=== PATIENT | male | born 1940 | race American Indian/Alaskan Native ===

== ENCOUNTER 2018-08-09 09:18 | Outpatient (CLI) | payer MEDICARE ==
[2018-08-09 11:15] LABS: Hematocrit 49.6 % (35.5-45.6); Hemoglobin 16.5 gm/dl (11.8-15.2); Mean Corpuscular HGB Conc 33 % (32-34); Mean Corpuscular Volume 96 fl (84-94); Platelet Count 209 K/mm3 (140-440); Red Blood Count 5.19 M/mm3 (3.65-5.03); Red Cell Distribution Width 14.2 % (13.2-15.2)
[2018-08-09 11:31] LABS: Albumin 4.1 g/dL (3.9-5); Calcium 9.4 mg/dL (8.4-10.2); Chol/HDL Ratio 3.41 %
== END 2018-08-09 09:19 | disposition home or self-care (01) ==
LOC: LAB 09:18
PROVIDERS: ATTEND Internal Medicine
DX: Z00.01 Encounter for general adult medical examination with abnormal findings (principal); I10 Essential (primary) hypertension; E55.9 Vitamin D deficiency, unspecified; D50.0 Iron deficiency anemia secondary to blood loss (chronic); R73.9 Hyperglycemia, unspecified; Z87.891 Personal history of nicotine dependence; R79.89 Other specified abnormal findings of blood chemistry
CPT/HCPCS: 36415; 80053; 80061; 82306; 82607; 83036; 84153; 84443; 85027

== ENCOUNTER 2019-02-22 09:00 | Outpatient (CLI) | payer MEDICARE ==
[2019-02-22 10:07] LABS: Chol/HDL Ratio 3.28 %
== END 2019-02-22 09:01 | disposition home or self-care (01) ==
LOC: LAB 09:00
PROVIDERS: ATTEND Internal Medicine
DX: E78.5 Hyperlipidemia, unspecified (principal); R73.03 Prediabetes; I10 Essential (primary) hypertension; Z87.891 Personal history of nicotine dependence
CPT/HCPCS: 36415; 80061; 83036

== ENCOUNTER 2020-10-08 14:32 | Emergency (ER) | payer MEDICARE ==
[2020-10-08] MEDS ORDERED: SODIUM CHLORIDE 0.9% 1000 ML 1,000 ML IV ONE ×2 (16:05→17:48)
--- NOTE | 2020-10-08 16:15 | Emergency Department Report ---
HPI - General Chief Complaint: Nausea/Vomiting/Diarrhea Time Seen by Provider: 10/08/20 15:55 - HPI HPI: 80-year-old male with history of hypertension and prior GI bleed in 2018 presents complaining of approximately 3 days of diarrhea which has been dark and tarry. The patient states that he first began having diarrhea on Wednesday. Since then he has had 3-4 loose bowel movements which he describes as dark in color, almost black. He also has developed severe generalized weakness and this is why he decided to call 911 today. Other than the diarrhea, dark stool, and weakness, he denies experiencing any fever, headache, vision change, chest pain, shortness of breath, cough, abdominal pain, nausea/vomiting, focal weakness, sensory changes, dysuria, hematuria, or any other complaints. He denies any recent use of NSAIDs or alcohol. ED Past Medical Hx - Past Medical History Previous Medical History?: Yes Hx Hypertension: Yes Additional medical history: History of GI bleed in 2018 - Surgical History Additional Surgical History: RADICAL PROSTATE SURGERY - Social History Smoking Status: Former Smoker Substance Use Type: Alcohol (occassional) - Medications Home Medications: Home Medications Medication Instructions Recorded Confirmed Last Taken Type Metoprolol Tartrate 25 mg PO BID 10/08/20 10/08/20 10/08/20 History ED Review of Systems ROS: Stated complaint: HYPOTENSION/WEAKNESS Other details as noted in HPI Constitutional: weakness. denies: chills Eyes: denies: eye pain, vision change ENT: denies: throat pain, congestion Respiratory: denies: cough, shortness of breath Cardiovascular: denies: chest pain, edema, syncope Gastrointestinal: diarrhea, melena. denies: abdominal pain, nausea, vomiting Genitourinary: denies: dysuria, frequency, hematuria Musculoskeletal: denies: back pain, myalgia Skin: denies: rash Neurological: denies: headache, weakness, numbness Physical Exam - Physical Exam Vital Signs: Vital Signs 10/08/20 10/08/20 15:16 15:19 Temperature 98.4 F 98.4 F Pulse Rate 95 H 99 H Respiratory 17 17 Rate Blood Pressure 98/41 Blood Pressure 98/41 [Left] O2 Sat by Pulse 98 98 Oximetry Vital Signs - 24 hr 10/08/20 10/08/20 10/08/20 15:12 15:16 15:19 Temperature 98.4 F 98.4 F Pulse Rate 99 H 95 H 99 H Respiratory 19 17 17 Rate Blood Pressure 98/41 Blood Pressure 98/41 [Left] O2 Sat by Pulse 98 98 Oximetry 10/08/20 10/08/20 10/08/20 15:31 16:01 16:31 Temperature Pulse Rate 100 H 114 H 103 H Respiratory 15 12 17 Rate Blood Pressure 99/54 83/58 109/80 Blood Pressure [Left] O2 Sat by Pulse 100 Oximetry 10/08/20 10/08/20 10/08/20 17:01 17:45 18:00 Temperature Pulse Rate 97 H 97 H 94 H Respiratory 14 15 13 Rate Blood Pressure 108/60 108/60 90/52 Blood Pressure [Left] O2 Sat by Pulse Oximetry 10/08/20 10/08/20 10/08/20 18:04 18:15 18:21 Temperature 98.4 F Pulse Rate 92 H 93 H 94 H Respiratory 16 18 Rate Blood Pressure 82/53 86/49 Blood Pressure 87/56 [Left] O2 Sat by Pulse 100 Oximetry 10/08/20 10/08/20 18:27 18:31 Temperature 99.0 F Pulse Rate 95 H 94 H Respiratory 19 16 Rate Blood Pressure 91/59 93/51 Blood Pressure [Left] O2 Sat by Pulse 97 Oximetry Physical Exam: GENERAL: Well developed and well nourished. No acute distress HEENT: Normocephalic. No obvious signs of trauma. Very dry mucous membranes. EYES: Extraocular movements are intact. NECK: Supple. Trachea is midline. LUNGS: Nonlabored breathing. Equal chest rise bilaterally. Clear to auscultation bilaterally. HEART/CARDIOVASCULAR: Tachycardic but with regular rhythm. No murmurs or rubs. VASCULAR: 2+ peripheral pulses ABDOMEN: Abdomen is soft and nondistended. There is no significant tenderness, guarding or rebound. RECTAL: Normal rectal tone. Melanotic stool is present in the rectal vault which is hemoccult positive. SKIN: Skin is warm and dry NEURO: Patient is awake, alert, and oriented. addiction treatment counselor II-XII grossly intact. No f ocal deficits. Normal motor and sensory exam throughout. Normal speech. MUSCULOSKELETAL: No obvious deformities. No significant tenderness. Normal ROM throughout. ED Course Vital Signs 10/08/20 10/08/20 15:16 15:19 Temperature 98.4 F 98.4 F Pulse Rate 95 H 99 H Respiratory 17 17 Rate Blood Pressure 98/41 Blood Pressure 98/41 [Left] O2 Sat by Pulse 98 98 Oximetry ED Medical Decision Making - Lab Data Result diagrams: 10/08/20 16:22 10/08/20 16:22 Laboratory Results - last 24 hr 10/08/20 10/08/20 10/08/20 16:22 16:22 16:22 WBC 11.4 H RBC 2.55 L Hgb 8.5 L Hct 25.2 L MCV 99 H MCH 33 H MCHC 34 RDW 15.0 Plt Count 148 Lymph % (Auto) 11.5 L [place] % (Auto) 4.3 Eos % (Auto) 0.0 Baso % (Auto) 0.1 Lymph # (Auto) 1.3 [place] # (Auto) 0.5 Eos # (Auto) 0.0 Baso # (Auto) 0.0 Seg Neutrophils % 84.1 H Seg Neutrophils # 9.6 H PT 15.7 H INR 1.20 H APTT 24.9 Sodium 142 Potassium 4.6 Chloride 108.6 H Carbon Dioxide 22 Anion Gap 16 BUN 41 H Creatinine 1.4 H Estimated GFR 59 BUN/Creatinine Ratio 29 Glucose 169 H Calcium 8.1 L Magnesium 1.90 Total Bilirubin 0.50 Direct Bilirubin < 0.2 Indirect Bilirubin 0.3 AST 17 ALT 11 Alkaline Phosphatase 36 Total Protein 5.2 L Albumin 3.2 L Albumin/Globulin Ratio 1.6 Lipase 18 Urine Color Urine Turbidity Urine pH Ur Specific [place] Urine Protein Urine Glucose (UA) Urine Ketones Urine Blood Urine Nitrite Urine Bilirubin Urine Urobilinogen Ur Leukocyte Esterase Urine WBC (Auto) Urine RBC (Auto) U Epithel Cells (Auto) Urine Bacteria (Auto) Urine Mucus Blood Type Antibody Screen Crossmatch 10/08/20 10/08/20 16:22 16:24 WBC RBC Hgb Hct MCV MCH MCHC RDW Plt Count Lymph % (Auto) [place] % (Auto) Eos % (Auto) Baso % (Auto) Lymph # (Auto) [place] # (Auto) Eos # (Auto) Baso # (Auto) Seg Neutrophils % Seg Neutrophils # PT INR APTT Sodium Potassium Chloride Carbon Dioxide Anion Gap BUN Creatinine Estimated GFR BUN/Creatinine Ratio Glucose Calcium Magnesium Total Bilirubin Direct Bilirubin Indirect Bilirubin AST ALT Alkaline Phosphatase Total Protein Albumin Albumin/Globulin Ratio Lipase Urine Color Yellow Urine Turbidity Clear Urine pH 5.0 Ur Specific [place] 1.016 Urine Protein <15 mg/dl Urine Glucose (UA) 50 Urine Ketones Neg Urine Blood Neg Urine Nitrite Neg Urine Bilirubin Neg Urine Urobilinogen < 2.0 Ur Leukocyte Esterase Neg Urine WBC (Auto) < 1.0 Urine RBC (Auto) < 1.0 U Epithel Cells (Auto) < 1.0 Urine Bacteria (Auto) 1+ Urine Mucus Few Blood Type O POSITIVE Antibody Screen Negative Crossmatch See Detail - Medical Decision Making 80-year-old male with history of GI bleed in the past presenting with 3 days of diarrhea which is melanotic and presenting today with severe generalized weakness. On my initial assessment, the patient is noted to be in no acute distress. He is afebrile but is noted to be tachycardic in the 110s. His blood pressure is relatively low while I was in the room with his most recent BP measuring in the 80s/50s. On physical examination, he has very dry mucous membranes. His abdomen is soft and nontender. He has a nonfocal neurologic exam. Rectal examination reveals melanotic stool in the rectal vault which is Hemoccult positive, most consistent with GI bleed as the source of his symptoms. We will send a full set of labs including type/screen and coags. We will give 1 L of IV fluids and start a Protonix drip with the plan to consult GI soon as the labs have returned. We will continue to monitor him closely. At 4:30 PM, labs have been drawn and IV fluids are running. The patient's blood pressure is improved to 110/80 and his heart rate has improved to the 90s. On repeat assessment at 5:12 PM, the patient is resting comfortably in the bed. He remains with stable blood pressure and heart rate in the 90s. He says his feeling of generalized weakness has not changed. Labs have returned and reveal white blood cell count of 11.4, hemoglobin level of 8.5 (review of the patient's past medical history reveals that his last hemoglobin value in 2019 was 16.5, before that it was 13.0 in 2018), his creatinine is elevated at 1.4 but this is at his baseline. BUN is elevated at 41 which is consistent with volume depletion and with GI bleed. Given that the patient is symptomatic and with active GI bleed, will transfuse 1u pRBCs now. Call has been placed to GI for consultation. I will order a repeat CBC to be drawn at 2100 after his transfusion. At 5:20 PM I spoke with Dr. Terry Mayo of gastroenterology regarding the case. He says that as long as the patient is stable, he will see them first thing in the morning and perform any interventions at that time. He says that if the patient might require an emergent procedure, he should be transferred since there is no after hours endoscopy at this hospital. When I went to reassess the patient to ensure that he is stable at 5:40 PM, he is noted to have a blood pressure of 85/54. His heart rate is in the 90s. Given that he is persistently hypotensive, I will order an additional unit of PRBCs as well as 1 L of IV fluids. Given my concern that the patient may require an emergent endoscopy procedure, I will attempt to initiate transfer to another facility with that capability. At 6:13 PM I spoke to Dr. Love of GI at [place] regarding the case. He agrees that the patient requires transfer and recommends transfer to the ICU. He will consult and perform any interventions that are necessary. At 6:20 PM I spoke to Dr. Joseph Madrigal, critical care doctor at [facility] regarding the case. He accepts the patient for transfer. Critical Care Time: Yes (55 minutes) Critical care time in (mins) excluding proc time.: 55 Critical care attestation.: If time is entered above; I have spent that time in minutes in the direct care of this critically ill patient, excluding procedure time. Critical care time was spent in the assessment and management of critical gastrointestinal bleeding requiring blood transfusion, and IV Protonix drip as well as multiple liters of fluid for hypotension. ED Disposition Clinical Impression: Hypotension, GI bleed, Symptomatic anemia Disposition: DC/TX-[id number] ANOTHER TYPE HLTHCARE Is pt being admited?: No Condition: Serious Referrals: PRIMARY CARE,MD [Primary Care Provider] - 3-5 Days
[2020-10-08 16:40] LABS: Basophils % (Auto) 0.1 % (0.0-1.8); Hematocrit 25.2 % (35.5-45.6); Hemoglobin 8.5 gm/dl (11.8-15.2); Lymphocytes # (Auto) 1.3 K/mm3 (1.2-5.4); Lymphocytes % (Auto) 11.5 % (13.4-35.0); Mean Corpuscular HGB Conc 34 % (32-34); Mean Corpuscular Volume 99 fl (84-94); Monocytes # (Auto) 0.5 K/mm3 (0.0-0.8); Monocytes % (Auto) 4.3 % (0.0-7.3); Platelet Count 148 K/mm3 (140-440); Red Blood Count 2.55 M/mm3 (3.65-5.03)
[2020-10-08 16:41] LABS: Bacteria,Urine 1+ /HPF (Negative); Bilirubin,Urine NEG (Negative); Blood,Urine NEG (Negative); Color,Urine Yellow (Yellow); Mucus,Urine FEW /HPF; Protein,Urine <15 mg/dL mg/dL (Negative); RBC,Urine < 1.0 /HPF (0.0-6.0); Urobilinogen,Urine < 2.0 mg/dL (<2.0); WBC,Urine < 1.0 /HPF (0.0-6.0)
[2020-10-08 16:50] LABS: INR 1.2 (0.87-1.13)
[2020-10-08 16:51] LABS: Partial Thromboplastin Time 24.9 Sec. (24.2-36.6)
[2020-10-08] MEDS ORDERED: PANTOPRAZOLE 80 MG in SODIUM CHLORIDE 0.9% 100 ML IV SCH (17:00)
[2020-10-08 17:03] LABS: Alanine Aminotransferase 11 units/L (7-56); Albumin 3.2 g/dL (3.9-5); BUN/Creatinine Ratio 29; Bilirubin,Direct < 0.2 mg/dL (0-0.2); Blood Urea Nitrogen 41 mg/dL (9-20); Calcium 8.1 mg/dL (8.4-10.2); Hemolysis Index 4
[2020-10-08] MEDS ORDERED: SODIUM CHLORIDE 0.9% 500 ML 500 ML IV ONE ×2 (17:16→17:47)
[2020-10-08 22:32] VITALS: BP 103/58
== END 2020-10-08 22:35 | disposition other institution (70) ==
LOC: ED 14:32
DX: D64.9 Anemia, unspecified (principal); I95.9 Hypotension, unspecified; K92.2 Gastrointestinal hemorrhage, unspecified; I10 Essential (primary) hypertension; Z98.890 Other specified postprocedural states; Z87.891 Personal history of nicotine dependence; Z79.899 Other long term (current) drug therapy
CPT/HCPCS: 36415; 36430; 80048; 80076; 81001; 82271; 83690; 83735; 85025; 85610; 85730; 86850; 86900; 86901; 86920; 96361; 96365; 96366; 99291; C9113; J7030; J7040; P9016